=== PATIENT | male | born 2000 | race Caucasian/White ===

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

== ENCOUNTER 2021-08-02 13:58 | Emergency (ER) | payer OTHER ==
[~2021-08-02] VITALS: Ht 175.3 cm; Wt 72.6 kg
[~2021-08-02 13:58] MED LIST changes: +Zofran4 MG PO
== END 2021-08-02 15:18 | disposition home or self-care (01) ==
LOC: ER 13:58
DX: S01.312A Laceration without foreign body of left ear, initial encounter (principal); S20.219A Contusion of unspecified front wall of thorax, initial encounter; Y04.2XXA Assault by strike against or bumped into by another person, initial encounter
CPT/HCPCS: 70450; 71046; 99284-25

== ENCOUNTER 2022-04-02 18:08 | Emergency (ER) | payer OTHER ==
[~2022-04-02] VITALS: Ht 177.8 cm; Wt 74.8 kg
[2022-04-02] MEDS ORDERED: IBU800 MG PO (20:45)
== END 2022-04-02 20:57 | disposition home or self-care (01) ==
LOC: ER 18:08
DX: J02.9 Acute pharyngitis, unspecified (principal); F17.210 Nicotine dependence, cigarettes, uncomplicated
CPT/HCPCS: 36415; 86308; 87081; 87430; 99283

== ENCOUNTER 2024-06-22 08:29 | Emergency (ER) | payer OTHER ==
[~2024-06-22] VITALS: Ht 172.7 cm; Wt 79.4 kg
[~2024-06-22 08:29] MED LIST changes: +IBU800 MG PO
[2024-06-22 09:03] VITALS: BP 139/107
== END 2024-06-22 10:12 | disposition home or self-care (01) ==
LOC: ER 08:29
DX: R51.9 Headache, unspecified (principal)
CPT/HCPCS: 70450; 99284-25